=== PATIENT | female | born 1965 | race Caucasian/White ===

== ENCOUNTER 2021-04-16 19:12 | Emergency (ER) | payer MEDICARE ==
[~2021-04-16] VITALS: Ht 162.6 cm; Wt 86.4 kg
[2021-04-16 19:20] VITALS: TEMP 98.7
[2021-04-16 20:40] VITALS: BP 125/81; PULSE 79
== END 2021-04-16 20:51 | disposition home or self-care (01) ==
LOC: COL.ER 19:12
DX: S50.01XA Contusion of right elbow, initial encounter (principal); S80.02XA Contusion of left knee, initial encounter; S70.01XA Contusion of right hip, initial encounter; M54.2 Cervicalgia; W01.0XXA Fall on same level from slipping, tripping and stumbling without subsequent striking against object, initial encounter
CPT/HCPCS: J1885

== ENCOUNTER 2021-11-01 09:10 | Emergency (ER) | payer OTHER ==
[~2021-11-01] VITALS: Ht 162.6 cm; Wt 82.3 kg
[2021-11-01 09:23] VITALS: TEMP 97.3
[2021-11-01 10:15] VITALS: BP 127/56; PULSE 79
== END 2021-11-01 10:15 | disposition home or self-care (01) ==
LOC: COL.ER 09:10
DX: S90.112A Contusion of left great toe without damage to nail, initial encounter (principal); Z28.310 Unvaccinated for COVID-19; V48.4XXA Person boarding or alighting a car injured in noncollision transport accident, initial encounter; Y92.410 Unspecified street and highway as the place of occurrence of the external cause